=== PATIENT | male | born 1970 | race Caucasian/White ===

== ENCOUNTER 2016-06-04 13:31 | Emergency (ER) | payer MEDICAID ==
[2016-06-04] MEDS ORDERED: ONDANSETRON HCL/PF 2 MG/ML VIAL IV ONE (14:30)
[2016-06-04] MEDS ORDERED: NORMAL SALINE 1,000 ML IV ONE ×2 (14:32→16:05)
[2016-06-04] MEDS ORDERED: INSULIN REGULAR, HUMAN 100 UNITS/ML VIAL ONE (14:39)
[2016-06-04] MEDS ORDERED: INSULIN REGULAR, HUMAN 100 UNITS/ML VIAL IV ONE (14:39)
--- NOTE | 2016-06-04 14:39 | ERNOTE ---
Medical Problem HPI - Narrative Date of Service: 06/04/16 - General Chief Complaint: Nausea/Vomiting Time Seen by Provider: 06/04/16 14:30 Source: patient Exam Limitations: no limitations - Immun/Allergies/Home Medications Allergies/Adverse Reactions: Allergies bee venom (honey bee) Allergy (Verified 06/04/16 13:42) coconut oil Allergy (Verified 06/04/16 13:42) divalproex sodium [From Depakote] Allergy (Verified 06/04/16 13:42) shellfish derived Allergy (Verified 06/04/16 13:42) benztropine mesylate [From Cogentin] Adverse Reaction (Verified 06/04/16 13:42) Home Medications: HOME MEDICATIONS Insulin NPL/Insulin Lispro [Humalog Mix 75-25 Kwikpen] 30 unit SQ BID 06/04/16 [ Last Taken Unknown] Lisinopril [Zestril] 2.5 mg PO DAILY 06/04/16 [Last Taken Unknown] - History of Present History Narrative: Presents with c/o nausea and vomiting, onset this morning. Vomited once today. Pt states he has some abdominal cramping, bodyaches, chills, and dizziness. Denies any diarrhea or noticeable fever. Timing: getting worse Severity: moderate Review of Systems - Review of Systems Constitutional: Present: chills, fatigue EYE: Present: no symptoms reported ENT: Present: no symptoms reported Respiratory: Present: no symptoms reported Cardiology: Present: no symptoms reported Gastrointestinal/Abdominal: Present: nausea, vomiting, abdominal pain. Absent: diarrhea, eating less, drinking less Genitourinary: Present: no symptoms reported Musculoskeletal: Present: See HPI Skin: Present: no symptoms reported Neurological: Present: no symptoms reported Endocrine: Present: no symptoms reported Hematologic/Lymphatic: Present: no symptoms reported Psych: Present: no symptoms reported All Other Systems: All systems neg except as marked - Patient's Past Medical History Patient History - Medical: Diabetes Type 1 Patient History - Cardiac/Respiratory: Hypertension, Hyperlipidemia Patient History - Cancer: Prostate Patient History - Surgical Procedures: Hernia Repair Patient History - Other: None - Social History Living Situations: home Psych History: No pertinent hx Smoking Status: Current every day smoker Alcohol Use: none Drug Use: none Physical Exam - Physical Exam General Appearance: Present: wd/wn, alert, no apparent distress Eye Exam: Normal inspection: bilateral, PERRL: bilateral, EOMI: bilateral Ears, Nose, Throat: Present: normal ENT inspection, normal pharynx Neck: Present: normal inspection, nontender Respiratory: Present: no respiratory distress, normal breath sounds, no accessory muscle use, chest nontender, lungs clear Cardiovascular/Chest: Present: regular rate, rhythm, no murmur, normal peripheral pulses Gastrointestinal/Abdominal: Present: normal bowel sounds, nontender, nondistended, soft, no organomegaly Extremity Exam: Present: normal inspection Neurological Exam: Present: alert, oriented, normal mood/affect, no motor/ sensory deficits Skin Exam: Present: normal color, warm/dry ED Progress - Results and Orders Patient's Lab Results:: I have reviewed the patient's lab results. - Vital Signs Patient's Vital Signs:: I have reviewed the patient's vital signs. Vital Signs: Vital Signs 06/04/16 13:35 Temperature 36.6 C Pulse Rate 87 Respiratory 12 Rate Blood Pressure 150/98 O2 Sat by Pulse 99 Oximetry - EKG EKG: unchanged from - previous EKG, showing Septal VT of indeterminate age. Sinus Rhythm @75 bpm. - Progress/Reassessment Chief Complaint: Nausea/Vomiting Progress:: Improved Departure - Departure Clinical Impression: Hyperglycemia due to type 2 diabetes mellitus Qualifiers: Diabetes mellitus group home insulin use: with group home use Qualified Code(s): E11.65 - Type 2 diabetes mellitus with hyperglycemia; Z79.4 - jail (current ) use of insulin Disposition: Home self-care Condition: Good Instructions: Hyperglycemia, [id number], Type 2 Diabetes Mellitus, Adult, [id number]
[2016-06-04 14:48] LABS: Hemoglobin 11.9 gm/dL (13.5-18.0); Red Blood Count 4.15 M/mm3 (4.7-6.0); White Blood Count 7.9 K/mm3 (4.0-10.5)
[2016-06-04 14:49] LABS: Hematocrit 36.4 % (42.0-52.0); Mean Cell Volume 87.7 fl (78-100); Mean Corpuscular Hemoglobin 28.7 pg (27-31); Mean Corpuscular Hgb Conc 32.7 g/dl (32-36); Mean Platelet Volume 9.3 fl (6.0-9.5); Neutrophil # 4.9 K/mm3 (1.3-6.0); Neutrophil % 61.9 % (42-75.0); Platelet Count 434 K/mm3 (150-450); Red Cell Distribution Width 13.6 % (11.5-14.0)
[2016-06-04 14:50] LABS: Urine Bilirubin Negative (NEGATIVE); Urine Blood Negative /ul (NEGATIVE); Urine Ketone Negative (NEGATIVE); Urine Nitrite Negative (NEGATIVE); Urine Protein Negative (NEGATIVE); Urine Specific Gravity 1.015 SP.GR. (1.005-1.030); Urine Urobilinogen Normal (NORMAL); Urine pH 7.5 pH (5.0-7.0)
--- OUTSIDE RECORDS SUMMARY | 2016-06-04 14:50 | XMS REPORT | Continuity of Care Document ---
:1970 Author Organization [facility] ([facility]) [place] [address] Phone [phone] Care Team Providers Name Role Phone Bob Saez Primary Care Provider [phone] Source Comments This disclosure is being made pursuant to the Care Everywhere program, applicable federal and state laws, and may not contain all informaitonavailable regarding this patient.[facility] ([facility]) Active Allergies and Adverse Reactions Allergen Noted Date Severity Reactions Comments Bee Stings 05/03/2009 Angioedema Benztropine 05/03/2009 Rash Iodinated Contrast Media - Oral And Iv Dye 05/03/2009 Rash Current Medications Prescription Sig. Disp. Refills Start Date End Date Status lisinopril (PRINIVIL) take 1 Tab by mouth 30 Tab 11 05/06/2009 Active 5 mg tablet daily. Indications: Hypertension FLUoxetine (PROZAC) 20 take 1 Cap by mouth 30 Cap 1 05/07/2009 Active mg capsule daily for 60 days. Indications: Depression Active Problems Problem Noted Date Chest pain 05/06/2009 Social History Tobacco Use Types Packs/Day Years Used Date Current Every Day Smoker Comments:1ppd for 20 years Alcohol Use Drinks/Week oz/Week Comments Yes About 5 beers per month Last Filed Vital Signs Vital Sign Reading Time Taken Blood Pressure 96/63 05/06/2009 8:00 AM OFFICE SERVICES SPECIALIST Pulse 75 05/06/2009 8:00 AM OFFICE SERVICES SPECIALIST Temperature 36.3 C (97.3 F) 05/06/2009 8:00 AM OFFICE SERVICES SPECIALIST Respiratory Rate 20 05/06/2009 8:00 AM OFFICE SERVICES SPECIALIST Height 1.803 m (5' 11") 05/03/2009 1:27 PM OFFICE SERVICES SPECIALIST Weight 72 kg (158 lb 11.7 oz) 05/03/2009 6:00 PM OFFICE SERVICES SPECIALIST Body Mass Index 22.15 05/03/2009 6:00 PM OFFICE SERVICES SPECIALIST Oxygen Saturation 99% 05/06/2009 8:00 AM OFFICE SERVICES SPECIALIST Plan of Care Health Maintenance Due Date Last Done Comments Hepatitis B Vaccine (1 of 3 - Primary 1970 Series) Tdap Vaccine 1981 MMR Vaccine 1988 Td Vaccine 1988 Pneumococcal Vaccine (1 of 1 - PPSV23) 1989 Lipid Disorder Screening 05/04/2014 05/04/2009, 05/03/2009 Influenza Vaccine: Seasonal (#1) 10/21/2015 Results from Last 3 Months Not on file
[2016-06-04 14:59] LABS: Urine Appearance Clear; Urine Bacteria None Seen; Urine Color Yellow; Urine RBC None Seen /hpf (0-5); Urine WBC None Seen /hpf (0-5)
[2016-06-04] MEDS ORDERED: ONDANSETRON HCL/PF 2 MG/ML VIAL ONE (15:01)
[2016-06-04 15:07] LABS: Albumin * 3.2 gm/dl (3.4-5.0); Anion Gap 15.2 mmol/L (6.8-13.8); BUN/Creatinine Ratio 21.1 (9.0-21.6); Bilirubin, Total 0.2 mg/dL (0.0-1.1); Ca. Corrected For Albumin 8.6 mg/dL (8.4-10.2); Calcium * 8.3 mg/dL (7.9-10.9); Carbon Dioxide 23.2 mmol/L (24-32.6); Potassium 4.4 mmol/L (3.4-4.6)
[2016-06-04 17:36] VITALS: BP 149/88
== END 2016-06-04 17:37 | disposition home or self-care (01) ==
LOC: ER 13:31
PROC: 4A033R1 Measurement of Arterial Saturation, Peripheral, Percutaneous Approach (ICD-10-PCS; principal; 2016-06-04)
DX: E11.65 Type 2 diabetes mellitus with hyperglycemia (principal); Z79.4 Long term (current) use of insulin; Z85.46 Personal history of malignant neoplasm of prostate; F17.210 Nicotine dependence, cigarettes, uncomplicated; I10 Essential (primary) hypertension

== ENCOUNTER 2016-07-08 16:01 | Emergency (ER) | payer MEDICAID ==
[2016-07-08 16:28] LABS: Urine Bilirubin Negative (NEGATIVE); Urine Blood Negative /ul (NEGATIVE); Urine Ketone Negative (NEGATIVE); Urine Nitrite Negative (NEGATIVE); Urine Protein Negative (NEGATIVE); Urine Urobilinogen Normal (NORMAL); Urine pH 5.5 pH (5.0-7.0)
[2016-07-08] MEDS ORDERED: NORMAL SALINE 1,000 ML IV ONE (16:30)
[2016-07-08 16:37] LABS: Hematocrit 37.6 % (42.0-52.0); Hemoglobin 12.3 gm/dL (13.5-18.0); Mean Cell Volume 84.7 fl (78-100); Mean Corpuscular Hemoglobin 27.7 pg (27-31); Mean Corpuscular Hgb Conc 32.7 g/dl (32-36); Mean Platelet Volume 9.8 fl (6.0-9.5); Neutrophil # 4.6 K/mm3 (1.3-6.0); Neutrophil % 55.8 % (42-75.0); Platelet Count 375 K/mm3 (150-450); Red Blood Count 4.44 M/mm3 (4.7-6.0); Red Cell Distribution Width 13.4 % (11.5-14.0); White Blood Count 8.2 K/mm3 (4.0-10.5)
[2016-07-08 16:42] LABS: Urine Appearance Clear; Urine Bacteria None Seen; Urine Color Yellow; Urine RBC None Seen /hpf (0-5); Urine WBC None Seen /hpf (0-5)
[2016-07-08 16:55] LABS: ALT 30 U/L (19-67); AST 20 U/L (0-48); Albumin * 3.8 gm/dl (3.4-5.0); Alkaline Phosphatase * 107 U/L (50-170); Anion Gap 13.8 mmol/L (6.8-13.8); Bilirubin, Total 0.2 mg/dL (0.0-1.1); Blood Urea Nitrogen 20 mg/dL (6-23); Ca. Corrected For Albumin 9.1 mg/dL (8.4-10.2); Calcium * 9.3 mg/dL (7.9-10.9); Carbon Dioxide 26.2 mmol/L (24-32.6); Chloride 102 mmol/L (97-106); Glucose * 337 mg/dL (70-110); Sodium 138 mmol/L (132-142); Total Protein 7.4 gm/dL (6.2-8.2)
--- OUTSIDE RECORDS SUMMARY | 2016-07-08 17:00 | XMS REPORT | Continuity of Care Document ---
:1970 Author Organization [facility] ([facility]) [place] [address] Phone [phone] Care Team Providers Name Role Phone Bob Saez Primary Care Provider [phone] Source Comments This disclosure is being made pursuant to the Care Everywhere program, applicable federal and state laws, and may not contain all informaitonavailable regarding this patient.[facility] ([facility]) Active Allergies and Adverse Reactions Allergen Noted [...] Taken Blood Pressure 96/63 05/06/2009 8:00 AM FINANCE ANALYST Pulse 75 05/06/2009 8:00 AM FINANCE ANALYST Temperature 36.3 C (97.3 F) 05/06/2009 8:00 AM FINANCE ANALYST Respiratory Rate 20 05/06/2009 8:00 AM FINANCE ANALYST Height 1.803 m (5' 11") 05/03/2009 1:27 PM FINANCE ANALYST Weight 72 kg (158 lb 11.7 oz) 05/03/2009 6:00 PM FINANCE ANALYST Body Mass Index 22.15 05/03/2009 6:00 PM FINANCE ANALYST Oxygen Saturation 99% 05/06/2009 8:00 AM FINANCE ANALYST Plan of Care Health Maintenance Due Date Last Done Comments Hepatitis B Vaccine (1 of 3 - Primary 1970 Series) Tdap Vaccine 1981 MMR Vaccine 1988 Td Vaccine 1988 Pneumococcal Vaccine (1 of 1 - PPSV23) 1989 Lipid Disorder Screening 05/04/2014 05/04/2009, 05/03/2009 Influenza Vaccine: Seasonal (#1) 10/21/2015 Results from Last 3 Months Not on file
--- NOTE | 2016-07-08 17:46 | ERNOTE ---
Medical Problem HPI - Narrative Date of Service: 07/08/16 - General Chief Complaint: Diabetes Related Problem Time Seen by Provider: 07/08/16 16:19 Source: patient - Immun/Allergies/Home Medications Immunizations: IMMUNIZATION HX Immunizations Up to Date Yes History of Influenza Vaccine Yes Hx Pneumococcal Vaccination Yes Allergies/Adverse Reactions: Allergies coconut oil Allergy (Verified 07/08/16 16:17) divalproex sodium [From Depakote] Allergy (Verified 07/08/16 16:17) iodine Allergy (Verified 07/08/16 16:17) shellfish derived Allergy (Verified 07/08/16 16:17) venom-honey bee [bee venom (honey bee)] Allergy (Verified 07/08/16 16:17) benztropine mesylate [From Cogentin] Adverse Reaction (Verified 07/08/16 16:17) Home Medications: HOME MEDICATIONS Lisinopril [Zestril] 10 mg PO DAILY 06/04/16 [Last Taken Unknown] Gabapentin [Gralise] 600 mg PO HS 07/08/16 [Last Taken Unknown] Insulin Detemir [Levemir] 20 units SC HS 07/08/16 [Last Taken Unknown] Insulin Lispro [Humalog] 10 units SQ TID 07/08/16 [Last Taken Unknown] - History of Present History Narrative: 46-year-old male presenting to the emergency room for general complaints of not feeling well and having an elevated blood sugar at home. Patient was also complaining of polyuria polydipsia polyphagia Date (Duration): 07/08/16 Timing: constant Modifying Factors - (Worsens): Present: eating Review of Systems - Review of Systems Constitutional: Present: See HPI, malaise EYE: Present: no symptoms reported ENT: Present: no symptoms reported Respiratory: Present: no symptoms reported Cardiology: Present: no symptoms reported Gastrointestinal/Abdominal: Present: See HPI Genitourinary: Present: See HPI, frequency Musculoskeletal: Present: no symptoms reported Skin: Present: no symptoms reported Neurological: Present: no symptoms reported Endocrine: Present: See HPI, increased thirst, increased urine, other - elevated blood glucose Hematologic/Lymphatic: Present: no symptoms reported Psych: Present: no symptoms reported - Patient's Past Medical History Patient History - Medical: Diabetes Type 1 Patient History - Cardiac/Respiratory: Hypertension, Hyperlipidemia Patient History - Cancer: Prostate Patient History - Surgical Procedures: Hernia Repair Patient History - Other: None - Social History Living Situations: home Psych History: No pertinent hx Smoking Status: Current every day smoker Have you smoked in the past 12 months: Yes Alcohol Use: none Drug Use: none - Immunizations Immunizations Up to Date: Yes Hx Pneumococcal Vaccination: Yes History of Influenza Vaccine: Yes Physical Exam - Physical Exam Narrative: This alert 46 male presenting to the emergency room. States that he was having blood work drawn today and his blood glucose was over 600 patient states that he checked his needed at home and is in the 500s but still continued to feel poorly so he decided to come to the emergency room. States he just does not feel good. Patients exam is positive for dry mucous membranes. General Appearance: Present: wd/wn, alert, no apparent distress Eye Exam: Normal inspection: bilateral Ears, Nose, Throat: Present: normal ENT inspection Neck: Present: normal inspection, nontender Respiratory: Present: no respiratory distress, normal breath sounds, chest nontender, lungs clear Cardiovascular/Chest: Present: regular rate, rhythm, no murmur Gastrointestinal/Abdominal: Present: normal bowel sounds, nontender, soft Back Exam: Present: normal range of motion Extremity Exam: Present: normal inspection, non-tender, normal range of motion, no edema Neurological Exam: Present: alert, oriented, normal mood/affect, no motor/ sensory deficits Skin Exam: Present: normal color, warm/dry Lymphatic Exam: Present: no adenopathy ED Progress - Results and Orders Patient's Lab Results:: I have reviewed the patient's lab results. Results and Orders: no acute process observed. negative for DKA, blood glucose trending down. - Vital Signs Vital Signs: Vital Signs 07/08/16 07/08/16 07/08/16 16:12 16:52 17:30 Temperature 37.8 C H 37.1 C Pulse Rate 95 95 93 Respiratory 14 15 14 Rate Blood Pressure 139/95 136/101 141/98 O2 Sat by Pulse 97 96 98 Oximetry - Progress/Reassessment Chief Complaint: Diabetes Related Problem Progress:: Improved Departure - Departure Clinical Impression: Hyperglycemia due to type 1 diabetes mellitus, Dehydration Disposition: Home self-care Condition: Stable Instructions: Dehydration, Adult, [id number], Hyperglycemia, [id number] Additional Instructions: Continue previous home medications. follow up with your doctor in the next few days regarding elevated blood glucoses. Return to the emergency room if you any other signs and symptoms of elevated blood glucose that is uncontrolled with her home medications. Return to the emergency room if you have any new symptoms or symptoms continue for dehydration. Referrals: Horace Feng MD [Primary Care Provider] -
[2016-07-08 18:10] VITALS: BP 136/82
== END 2016-07-08 18:10 | disposition home or self-care (01) ==
LOC: ER 16:01
DX: E86.0 Dehydration (principal); E10.65 Type 1 diabetes mellitus with hyperglycemia; Z85.46 Personal history of malignant neoplasm of prostate; Z79.4 Long term (current) use of insulin; I10 Essential (primary) hypertension; F17.210 Nicotine dependence, cigarettes, uncomplicated

== ENCOUNTER 2016-08-26 06:00 | Emergency (ER) | payer MEDICAID, OTHER ==
--- OUTSIDE RECORDS SUMMARY | 2016-08-26 06:50 | XMS REPORT | Continuity of Care Document ---
:1970 Author Organization [facility] ([facility]) Address [place] [address] Phone [phone] Care Team Providers Name Role Phone Laura Fengjuan david Primary Care Provider [phone] Source Comments This disclosure is being made pursuant to the Care Everywhere program, applicable federal and state laws, and may not contain all informaitonavailable regarding this patient.[facility] ([facility]) Active Allergies and Adverse Reactions Allergen Noted Date Severity Reactions Comments Bee Stings 05/03/2009 Angioedema Benztropine 05/03/2009 Rash Iodinated Contrast- Oral And Iv Dye 05/03/2009 Rash Current [...] Problems Problem Noted Date Chest pain 05/06/2009 Most Recent Encounters Date Type Specialty Providers Description 08/21/2016 Office Visit Diabetes Services Default, Other Billg Chief Comp: Patient - Defo Reported Reason For Shanique Cabrera, RD LD Visit 08/21/2016 Office Visit Diabetes Services Default, Other Billg Chief Comp: Patient - Defo Reported Reason For Elsie Darby, Visit PA-C 08/06/2016 Office Visit Diabetes Services Default, Other Billg Chief Comp: Patient - Defo Reported Reason For DeborahShanique carvalho, RD LD Visit 08/06/2016 Office Visit Diabetes Services Default, Other Billg Chief Comp: Patient - Defo Reported Reason For Elsie Darby, Visit PA-C Social History Tobacco Use Types Packs/Day Years Used Date Current Every Day Smoker Comments:1ppd for 20 years Alcohol Use Drinks/Week oz/Week Comments Yes About 5 beers per month Last Filed Vital Signs Vital Sign Reading Time Taken Blood Pressure 96/63 05/06/2009 8:00 AM SLUMBER ROOM ATTENDANT Pulse 75 05/06/2009 8:00 AM SLUMBER ROOM ATTENDANT Temperature 36.3 C (97.3 F) 05/06/2009 8:00 AM SLUMBER ROOM ATTENDANT Respiratory Rate 20 05/06/2009 8:00 AM SLUMBER ROOM ATTENDANT Height 1.803 m (5' 11") 05/03/2009 1:27 PM SLUMBER ROOM ATTENDANT Weight 72 kg (158 lb 11.7 oz) 05/03/2009 6:00 PM SLUMBER ROOM ATTENDANT Body Mass Index 22.15 05/03/2009 6:00 PM SLUMBER ROOM ATTENDANT Oxygen Saturation 99% 05/06/2009 8:00 AM SLUMBER ROOM ATTENDANT Plan of Care Date Type Specialty Providers Description 09/03/2016 Appointment Diabetes Services Default, Other Billg - Defo [address] [place] [address] [phone] (Fax) Chief Comp: Patient Elsie Darby, PABetito [address] [place] [address] [phone] (Fax) Reported Reason For Visit 09/03/2016 Appointment Diabetes Services Default, Other Billg - Defo [address] [place] [address] [phone] (Fax) Chief Comp: Patient Marlin Olea, RD LD [address] [place] [address] [phone] (Fax) Reported Reason For Visit Health Maintenance Due Date Last Done Comments Hepatitis B Vaccine (1 of 3 - Primary 1970 Series) Tdap Vaccine 1981 MMR Vaccine 1988 Td Vaccine 1988 Pneumococcal Vaccine (1 of 1 - PPSV23) 1989 Lipid Disorder Screening 05/04/2014 05/04/2009, 05/03/2009 Influenza Vaccine: Seasonal (Season Ended) 2016 Results from Last 3 Months Not on file
--- NOTE | 2016-08-26 06:58 | ERNOTE ---
Integumentary HPI - General Presenting Symptoms: rash Time Seen by Provider: 08/26/16 06:41 Source: patient Exam Limitations: no limitations - Immun/Allergies/Home Medications Immunizations: IMMUNIZATION HX Immunizations Up to Date Yes History of Influenza Vaccine Yes Hx Pneumococcal Vaccination Yes Allergies/Adverse Reactions: Allergies Allergy/AdvReac Type Severity Reaction Status Date / Time coconut oil Allergy Verified 08/26/16 06:16 divalproex sodium Allergy Verified 08/26/16 06:16 [From Depakote] iodine Allergy Verified 08/26/16 06:16 shellfish derived Allergy Verified 08/26/16 06:16 venom-honey bee Allergy Verified 08/26/16 06:16 [bee venom (honey bee)] benztropine mesylate AdvReac Verified 08/26/16 06:16 [From Cogentin] Home Medications: HOME MEDICATIONS Lisinopril [Zestril] 10 mg PO DAILY 06/04/16 [Last Taken Unknown] Gabapentin [Gralise] 600 mg PO HS 07/08/16 [Last Taken Unknown] Insulin Detemir [Levemir] 20 units SC HS 07/08/16 [Last Taken Unknown] Insulin Lispro [Humalog] 10 units SQ TID 07/08/16 [Last Taken Unknown] Aspirin 81 mg PO DAILY 08/26/16 [Last Taken Unknown] Triamcinolone Acetonide [Kenalog 0.025%] 1 appl TP BID #15 gm 08/26/16 [Last Taken Unknown] - Pain Pain Score: 7 - History of Present Illness Narrative: Pt states he has had a rash for 3 days and has gotten more painful. Last night he couldn't sleep due to pain. Location: Reports: other - lower abdomen and pelvic area Quality: Reports: painful Severity: moderate Exposure: Reports: no cause identified Modifying Factors - (Worsens): Reports: other - pressure on area Associated Symptoms: Denies: blisters, hives, change in skin texture Review of Systems - Review of Systems Constitutional: Absent: recent illness, fever EYE: Present: no symptoms reported ENT: Present: no symptoms reported Respiratory: Present: no symptoms reported Cardiology: Present: no symptoms reported Gastrointestinal/Abdominal: Present: no symptoms reported Genitourinary: Present: no symptoms reported Musculoskeletal: Present: no symptoms reported Skin: Present: See HPI Neurological: Present: no symptoms reported Endocrine: Present: no symptoms reported Hematologic/Lymphatic: Present: no symptoms reported Psych: Present: no symptoms reported - Patient's Past Medical History Patient History - Medical: Diabetes Type 1, Diabetes Type 2 Insulin Dependent Patient History - Cardiac/Respiratory: Hypertension, Hyperlipidemia Patient History - Cancer: Prostate Patient History - Surgical Procedures: Hernia Repair Patient History - Other: None - Social History Living Situations: home Psych History: No pertinent hx Alcohol Use: none Drug Use: none - Immunizations Immunizations Up to Date: Yes Hx Pneumococcal Vaccination: Yes History of Influenza Vaccine: Yes Physical Exam - Physical Exam General Appearance: Present: wd/wn, alert, no apparent distress Ears, Nose, Throat: Present: normal ENT inspection Neck: Present: normal inspection, supple, full range of motion Respiratory: Present: no respiratory distress, no accessory muscle use Neurological Exam: Present: alert, oriented, normal mood/affect Skin Exam: Present: skin rash - scattered very faint areas of pink, non- palpable rash on pelvis and lower abdomen Lymphatic Exam: Present: no adenopathy ED Progress - Vital Signs Vital Signs: Vital Signs 08/26/16 08/26/16 06:07 06:32 Temperature 37.3 C Pulse Rate 95 94 Respiratory 12 12 Rate Blood Pressure 149/104 160/98 O2 Sat by Pulse 97 96 Oximetry - Progress/Reassessment Chief Complaint: Rash Departure Clinical Impression: Rash and other nonspecific skin eruption - Departure Disposition: Home Follow Up Needed Condition: Good Instructions: Rash, [id number] Additional Instructions: use cream as directed. See your regular doctor if not improving in 5-7 days Referrals: Horace Feng MD [Primary Care Provider] - Prescriptions: Triamcinolone Acetonide [Kenalog 0.025%] 1 appl TP BID #15 gm
[2016-08-26 07:01] VITALS: BP 155/101
== END 2016-08-26 07:04 | disposition home or self-care (01) ==
LOC: ER 06:00
DX: R21 Rash and other nonspecific skin eruption (principal); Z85.46 Personal history of malignant neoplasm of prostate; I10 Essential (primary) hypertension; E78.5 Hyperlipidemia, unspecified; E11.9 Type 2 diabetes mellitus without complications

== ENCOUNTER 2016-12-16 00:54 | Emergency (ER) | payer OTHER ==
[2016-12-16] MEDS ORDERED: ONDANSETRON HCL/PF 2 MG/ML VIAL IV ONE (00:55)
[2016-12-16] MEDS ORDERED: NORMAL SALINE 1,000 ML IV ONE ×2 (01:13→03:03)
[2016-12-16] MEDS ORDERED: ONDANSETRON HCL/PF 2 MG/ML VIAL ONE (01:15)
[2016-12-16 01:21] LABS: Urine Bilirubin Negative (NEGATIVE); Urine Blood Negative /ul (NEGATIVE); Urine Ketone Large mg/dL (NEGATIVE); Urine Nitrite Negative (NEGATIVE); Urine Protein Negative (NEGATIVE); Urine Urobilinogen Normal (NORMAL)
--- NOTE | 2016-12-16 01:26 | ERNOTE ---
Medical Problem HPI - General Chief Complaint: Nausea/Vomiting Time Seen by Provider: 12/16/16 00:54 Source: patient Exam Limitations: clinical condition - Immun/Allergies/Home Medications Immunizations: IMMUNIZATION HX Immunizations Up to Date Yes History of Influenza Vaccine No Hx Pneumococcal Vaccination Yes Allergies/Adverse Reactions: Allergies coconut oil Allergy (Verified 08/26/16 06:16) divalproex sodium [From Depakote] Allergy (Verified 08/26/16 06:16) iodine Allergy (Verified 08/26/16 06:16) shellfish derived Allergy (Verified 08/26/16 06:16) venom-honey bee [bee venom (honey bee)] Allergy (Verified 08/26/16 06:16) benztropine mesylate [From Cogentin] Adverse Reaction (Verified 08/26/16 06:16) Home Medications: HOME MEDICATIONS Gabapentin [Gralise] 600 mg PO HS 07/08/16 [Last Taken Unknown] Insulin Detemir [Levemir] 20 units SC HS 07/08/16 [Last Taken Unknown] Insulin Lispro [Humalog] 10 units SQ TID 07/08/16 [Last Taken Unknown] Gabapentin 300 mg PO HS 12/16/16 [Last Taken Unknown] Lisinopril 20 mg PO DAILY 12/16/16 [Last Taken Unknown] Pantoprazole Sodium 40 mg PO DAILY 12/16/16 [Last Taken Unknown] Promethazine HCl 12.5 mg PO QID PRN 12/16/16 [Last Taken Unknown] - History of Present History Narrative: Pt states he has been vomiting since 13:00 yesterday. He states he has phenergan at home but it hasn't been working today. Timing: getting worse Severity: severe Modifying Factors - (Improves): Absent: medication - phenergan did not help Modifying Factors - (Worsens): Present: eating Review of Systems - Review of Systems Constitutional: Absent: recent illness EYE: Absent: vision changes ENT: Absent: nose congestion Respiratory: Absent: shortness of breath Cardiology: Absent: chest pain Gastrointestinal/Abdominal: Present: nausea, vomiting. Absent: diarrhea, constipation Genitourinary: Present: frequency Musculoskeletal: Absent: neck pain, joint pain Skin: Absent: rash Neurological: Present: no symptoms reported Endocrine: Present: flushing, increased thirst Hematologic/Lymphatic: Present: no symptoms reported Psych: Present: no symptoms reported - Patient's Past Medical History Patient History - Medical: Diabetes Type 1, Other Patient History - Cardiac/Respiratory: Hypertension, Hyperlipidemia Patient History - Cancer: No Hx of Cancer Patient History - Surgical Procedures: Hernia Repair Patient History - Other: None - Social History Living Situations: other Psych History: No pertinent hx Smoking Status: Current every day smoker Have you smoked in the past 12 months: Yes Do you dip or chew tobacco: No Alcohol Use: rarely Drug Use: marijuana - Immunizations Immunizations Up to Date: Yes Hx Pneumococcal Vaccination: Yes History of Influenza Vaccine: No Physical Exam - Physical Exam General Appearance: Present: wd/wn, alert, moderate distress Head Exam: Present: normal inspection, no evidence of injury Eye Exam: Normal inspection: bilateral Ears, Nose, Throat: Present: dry mucous membranes Neck: Present: nontender, supple, full range of motion Respiratory: Present: no respiratory distress, normal breath sounds, lungs clear Cardiovascular/Chest: Present: regular rate, rhythm, no murmur Gastrointestinal/Abdominal: Present: nondistended, soft, tenderness - mild epigastric, abnormal bowel sounds - hyperactive, guarding, rebound Extremity Exam: Present: normal inspection, no edema Neurological Exam: Present: alert, oriented, no motor/sensory deficits Skin Exam: Present: normal color, warm/dry Lymphatic Exam: Present: no adenopathy ED Progress - Results and Orders Patient's Lab Results:: I have reviewed the patient's lab results. Results and Orders: Laboratory Tests 12/16/16 12/16/16 12/16/16 01:05 01:05 01:21 WBC Hgb Hct Plt Count Neutrophils % (Manual) VBG pH Sodium Potassium Chloride Carbon Dioxide Anion Gap BUN Creatinine Random Glucose Calcium Total Bilirubin AST ALT Alkaline Phosphatase Total Protein Albumin Amylase Lipase Urine Color Pale yellow Urine Appearance Clear Urine pH 6.0 Ur Specific [place] 1.020 Urine Protein Negative Urine Glucose (UA) >=1000 H Urine Ketones Large Urine Blood Negative Urine Nitrate Negative Urine Bilirubin Negative Urine Urobilinogen Normal Ur Leukocyte Esterase Negative Urine RBC Trace Urine WBC None seen Ur Epithelial Cells None seen Urine Bacteria None seen Urine Culture Comments No culture indicated Gastric Occult Blood Positive H Urine Opiates Screen Negative Barbiturate Screen Negative Ur Phencyclidine Scrn Negative Urine Amphetamine Negative U Benzodiazepines Scrn Negative Urine Cocaine Screen Negative Urine Marijuana (THC) Positive H Serum Ketones 0912/16/16 12/16/16 02:00 02:00 02:00 WBC 25.4 H Hgb 16.1 Hct 51.4 Plt Count 281 Neutrophils % (Manual) 82 H VBG pH Sodium 139 Potassium 5.2 H D Chloride 98 Carbon Dioxide 13.9 L Anion Gap 32.3 H BUN 24 H D Creatinine 1.25 Random Glucose 506 H* Calcium 9.7 Total Bilirubin 0.6 AST 40 ALT 38 Alkaline Phosphatase 132 Total Protein 7.5 Albumin 4.4 Amylase 33 Lipase 47 L Urine Color Urine Appearance Urine pH Ur Specific [place] Urine Protein Urine Glucose (UA) Urine Ketones Urine Blood Urine Nitrate Urine Bilirubin Urine Urobilinogen Ur Leukocyte Esterase Urine RBC Urine WBC Ur Epithelial Cells Urine Bacteria Urine Culture Comments Gastric Occult Blood Urine Opiates Screen Barbiturate Screen Ur Phencyclidine Scrn Urine Amphetamine U Benzodiazepines Scrn Urine Cocaine Screen Urine Marijuana (THC) Serum Ketones Positive - 80mg/dl H 12/16/16 02:00 WBC Hgb Hct Plt Count Neutrophils % (Manual) VBG pH 7.243 L Sodium Potassium Chloride Carbon Dioxide Anion Gap BUN Creatinine Random Glucose Calcium Total Bilirubin AST ALT Alkaline Phosphatase Total Protein Albumin Amylase Lipase Urine Color Urine Appearance Urine pH Ur Specific [place] Urine Protein Urine Glucose (UA) Urine Ketones Urine Blood Urine Nitrate Urine Bilirubin Urine Urobilinogen Ur Leukocyte Esterase Urine RBC Urine WBC Ur Epithelial Cells Urine Bacteria Urine Culture Comments Gastric Occult Blood Urine Opiates Screen Barbiturate Screen Ur Phencyclidine Scrn Urine Amphetamine U Benzodiazepines Scrn Urine Cocaine Screen Urine Marijuana (THC) Serum Ketones - Vital Signs Patient's Vital Signs:: I have reviewed the patient's vital signs. Vital Signs: Vital Signs 12/16/16 00:54 Temperature 36.9 C Pulse Rate 112 H Respiratory 16 Rate Blood Pressure 141/109 O2 Sat by Pulse 97 Oximetry - X-Ray X-Ray #1 X-Ray: chest Interpretation: Interp. by me X-ray Comments: No infiltrate or effusion. no free air, mediastinum normal X-Ray #2 X-Ray: abdomen Interpretation: Interp. by me X-ray Comments: non specific gas pattern. no evidence of obstruction - Progress/Reassessment Chief Complaint: Nausea/Vomiting Progress:: Improved Progress Note-Subjective: 12/16/16 04:10 Spoke to Nurse refuse collector supervisor here and we do not have SCU nurse coverage to keep this patient. I called [facility] and due to hematemasis and risk for esophageal varices they would not be comfortable taking him. I spoke with Dr. Shaw at [facility] ED he agrees to accept the patient in transfer. Departure Clinical Impression: DKA (diabetic ketoacidoses) Qualifiers: Diabetes mellitus type: type 1 Diabetes mellitus complication detail: without coma Qualified Code(s): E10.10 - Type 1 diabetes mellitus with ketoacidosis without coma Gastrointestinal bleed Qualifiers: GI bleed type/associated pathology: gastrointestinal hemorrhage with hematemesis Qualified Code(s): K92.0 - Hematemesis - Departure Disposition: [facility] Condition: Fair
[2016-12-16] MEDS ORDERED: PROCHLORPERAZINE EDISYLATE 5 MG/ML VIAL IV ONE (01:33)
[2016-12-16] MEDS ORDERED: PANTOPRAZOLE SODIUM 40 MG in NORMAL SALINE 100 ML IV ONE (01:34)
[2016-12-16] MEDS ORDERED: PROCHLORPERAZINE EDISYLATE 5 MG/ML VIAL ONE (01:34)
[2016-12-16] MEDS ORDERED: PANTOPRAZOLE SODIUM 40 MG/100 ML PIGGYBACK IV ONE (01:35)
[2016-12-16 02:06] LABS: Hematocrit 51.4 % (42.0-52.0); Hemoglobin 16.1 gm/dL (13.5-18.0); Mean Cell Volume 92.8 fl (78-100); Mean Corpuscular Hemoglobin 29.1 pg (27-31); Mean Corpuscular Hgb Conc 31.3 g/dl (32-36); Mean Platelet Volume 11.1 fl (6.0-9.5); Platelet Count 281 K/mm3 (150-450); Red Blood Count 5.54 M/mm3 (4.7-6.0); White Blood Count 25.4 K/mm3 (4.0-10.5)
[2016-12-16 02:09] LABS: Total Cells Counted 100
[2016-12-16 02:11] LABS: Cocaine Ur Negative (NEGATIVE); Urine Barbiturate Negative (NEGATIVE); Urine Benzodiazepines Negative (NEGATIVE); Urine Opiates Negative (NEGATIVE); Urine PCP Negative (NEGATIVE)
[2016-12-16 02:18] LABS: Urine Appearance Clear; Urine Bacteria None Seen; Urine Color Pale Yellow; Urine RBC TRACE /hpf (0-5); Urine WBC None Seen /hpf (0-5)
[2016-12-16 02:25] LABS: Urine THC Positive (NEGATIVE)
[2016-12-16 02:26] LABS: Albumin * 4.4 gm/dl (3.4-5.0); Anion Gap 32.3 mmol/L (6.8-13.8); BUN/Creatinine Ratio 19.2 (9.0-21.6); Bilirubin, Total 0.6 mg/dL (0.0-1.1); Ca. Corrected For Albumin 9.1 mg/dL (8.4-10.2); Calcium * 9.7 mg/dL (7.9-10.9); Carbon Dioxide 13.9 mmol/L (24-32.6); Potassium 5.2 mmol/L (3.4-4.6); Total Protein 7.5 gm/dL (6.2-8.2)
[2016-12-16] MEDS ORDERED: INSULIN REGULAR, HUMAN 100 UNITS/ML VIAL IV ONE (03:03)
[2016-12-16] MEDS ORDERED: INSULIN REGULAR, HUMAN 100 UNITS/ML VIAL ONE (03:06)
[2016-12-16 03:24] LABS: Band 9 % (0-2.0); Basophil 1 % (0-1); Immature Granulocyte 2 (0-1); Lymphocyte 5 % (20-51)
[2016-12-16 03:25] LABS: Dohle Bodies Trace; Giant Platelets Trace; Monocyte 1 % (0-9); Neutrophil 82 % (42-75); Neutrophil # 20.8 K/mm3 (1.3-6.0); Toxic Granulation Trace
[2016-12-16] MEDS ORDERED: PROMETHAZINE HCL 25 MG/ML AMPUL IM ONE (03:26)
[2016-12-16 03:29] LABS: Poikilocytosis Trace
[2016-12-16] MEDS ORDERED: PROMETHAZINE HCL 25 MG/ML AMPUL ONE (03:30)
[2016-12-16] MEDS: INSULIN REGULAR HUMAN REC 100 UNITS in NORMAL SALINE 100 ML IV PRN ×2 (03:40→04:15)
[2016-12-16 04:11] VITALS: BP 153/86
== END 2016-12-16 04:25 | disposition short-term general hospital (02) ==
LOC: ER 00:54
DX: E10.10 Type 1 diabetes mellitus with ketoacidosis without coma (principal); K92.0 Hematemesis; I10 Essential (primary) hypertension; E78.5 Hyperlipidemia, unspecified; F17.200 Nicotine dependence, unspecified, uncomplicated
CPT/HCPCS: 36415; 71010; 74020; 80053; 80307; 81001; 82009; 82150; 82272; 82800; 83690; 85025; 96365; 96367; 96372; 96375; 99285; J2405

== ENCOUNTER 2016-12-30 14:52 | Emergency (ER) | payer OTHER ==
[2016-12-30] MEDS ORDERED: ASPIRIN 81 MG TAB.CHEW ONE (15:09)
[2016-12-30] MEDS: NITROGLYCERIN 0.4 MG/TAB BTL SL PRN ×2 (15:10→15:20)
[2016-12-30] MEDS ORDERED: ASPIRIN 81 MG TAB.CHEW PO ONE (15:14)
[2016-12-30] MEDS ORDERED: ONDANSETRON HCL/PF 2 MG/ML VIAL ONE ×2 (15:15→15:46)
[2016-12-30] MEDS ORDERED: ONDANSETRON HCL/PF 2 MG/ML VIAL IV ONE ×2 (15:15)
[2016-12-30 15:34] LABS: Hemoglobin 14.5 gm/dL (13.5-18.0); Mean Cell Volume 86.2 fl (78-100); Mean Corpuscular Hemoglobin 29.8 pg (27-31); Mean Corpuscular Hgb Conc 34.5 g/dl (32-36); Neutrophil # 5.3 K/mm3 (1.3-6.0); Neutrophil % 55.3 % (42-75.0); Platelet Count 415 K/mm3 (150-450); Red Blood Count 4.87 M/mm3 (4.7-6.0); Red Cell Distribution Width 13.1 % (11.5-14.0); White Blood Count 9.6 K/mm3 (4.0-10.5)
[2016-12-30 15:44] LABS: Prothrombin Time (Patient) 9.4 Seconds (9.4-11.4)
[2016-12-30 15:45] LABS: INR 0.9 INR (0.90-1.10); Partial Thrombolplastin Time 24.6 Seconds (24-32)
[2016-12-30 15:52] LABS: ALT 23 U/L (19-67); AST 17 U/L (0-48); Albumin * 3.5 gm/dl (3.4-5.0); Alkaline Phosphatase * 105 U/L (50-170); Anion Gap 14.5 mmol/L (6.8-13.8); BUN/Creatinine Ratio 12.8 (9.0-21.6); Bilirubin, Total 0.2 mg/dL (0.0-1.1); Blood Urea Nitrogen 10 mg/dL (6-23); Ca. Corrected For Albumin 9.4 mg/dL (8.4-10.2); Calcium * 9.3 mg/dL (7.9-10.9); Carbon Dioxide 25.7 mmol/L (24-32.6); Chloride 105 mmol/L (97-106); Glucose * 78 mg/dL (70-110); Magnesium 1.9 mg/dL (1.2-2.8); Potassium 3.2 mmol/L (3.4-4.6); Sodium 142 mmol/L (132-142)
[2016-12-30 15:53] LABS: Troponin I Less than 0.017 ng/ml (0.00-0.10)
[2016-12-30] MEDS ORDERED: PROMETHAZINE HCL 12.5 MG in DEXTROSE 5 % IN WATER 50 ML IV ONE ×2 (16:19)
[2016-12-30] MEDS ORDERED: LIDOCAINE HCL 20 ML UDC PO ONE (16:20)
[2016-12-30] MEDS ORDERED: MAG HYDROX/ALUMINUM HYD/SIMETH 30 ML UDC PO ONE (16:20)
[2016-12-30] MEDS ORDERED: BELLADONNA ALKALOIDS/PHENOBARB 60 ML BTL PO ONE (16:20)
[2016-12-30] MEDS ORDERED: diphenhydrAMINE HCL 50 MG/ML VIAL IV ONE (16:29)
[2016-12-30] MEDS ORDERED: METOCLOPRAMIDE HCL 5 MG/ML VIAL IV ONE (16:29)
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
[2016-12-30] MEDS ORDERED: METOCLOPRAMIDE HCL 5 MG/ML VIAL ONE (16:31)
[2016-12-30] MEDS ORDERED: diphenhydrAMINE HCL 50 MG/ML VIAL ONE (16:37)
[2016-12-30] MEDS ORDERED: DEXTROSE 50%-WATER 50 ML SYRG IV ONE (16:55)
[2016-12-30] MEDS ORDERED: DEXTROSE 50%-WATER 50 ML SYRG ONE (16:56)
[2016-12-30 17:57] VITALS: BP 117/76
== END 2016-12-30 18:05 | disposition home or self-care (01) ==
LOC: ER 14:52
DX: E10.43 Type 1 diabetes mellitus with diabetic autonomic (poly)neuropathy (principal); K31.84 Gastroparesis; Z79.4 Long term (current) use of insulin; I10 Essential (primary) hypertension; F17.200 Nicotine dependence, unspecified, uncomplicated
CPT/HCPCS: 36415; 71010; 80053; 82947; 83735; 84484; 85025; 85610; 85730; 93005; 96374; 96375; 99284; J2405

== ENCOUNTER 2018-03-30 21:35 | Observation (INO) ==
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
[2018-03-30] MEDS ORDERED: ONDANSETRON HCL/PF 2 MG/ML VIAL IV ONE (22:15)
[2018-03-30] MEDS ORDERED: NORMAL SALINE 1,000 ML IV ONE (22:15)
[2018-03-30] MEDS ORDERED: PANTOPRAZOLE SODIUM 40 MG/100 ML PIGGYBACK IV ONE (22:39)
[2018-03-30 23:06] LABS: Hematocrit 48.6 % (42.0-52.0); Hemoglobin 15.4 gm/dL (13.5-18.0); Mean Cell Volume 91.7 fl (78-100); Mean Corpuscular Hemoglobin 29.1 pg (27-31); Mean Corpuscular Hgb Conc 31.7 g/dl (32-36); Mean Platelet Volume 9.8 fl (8-11.3); Neutrophil # 12.2 K/mm3 (1.3-6.0); Neutrophil % 87.6 % (42-75.0); Platelet Count 245 K/mm3 (150-450); Red Cell Distribution Width 12.5 % (11.5-14.0); White Blood Count 13.9 K/mm3 (4.0-10.5)
[2018-03-30] MEDS ORDERED: PROCHLORPERAZINE EDISYLATE 5 MG/ML VIAL IV ONE (23:24)
[2018-03-30] MEDS ORDERED: PROCHLORPERAZINE EDISYLATE 5 MG/ML VIAL ONE (23:25)
[2018-03-30 23:29] LABS: Urine Bilirubin Negative (NEGATIVE); Urine Blood Negative /ul (NEGATIVE); Urine Ketone Large mg/dL (NEGATIVE); Urine Nitrite Negative (NEGATIVE); Urine Protein Negative (NEGATIVE); Urine Urobilinogen Normal (NORMAL)
[2018-03-30 23:36] LABS: ALT 24 U/L (19-67); AST 24 U/L (0-48); Albumin * 3.5 gm/dl (3.4-5.0); Alkaline Phosphatase * 172 U/L (50-170); Anion Gap 18.2 mmol/L (6.8-13.8); BUN/Creatinine Ratio 23.3 (9.0-21.6); Bilirubin, Total 0.4 mg/dL (0.0-1.1); Blood Urea Nitrogen 17 mg/dL (6-23); Ca. Corrected For Albumin 9.5 mg/dL (8.4-10.2); Calcium * 9.4 mg/dL (7.9-10.9); Carbon Dioxide 27.3 mmol/L (24-32.6); Chloride 99 mmol/L (97-106); Glucose * 405 mg/dL (70-110); Potassium 4.5 mmol/L (3.4-4.6); Sodium 140 mmol/L (132-142); Total Protein 6.9 gm/dL (6.2-8.2)
[2018-03-30 23:42] LABS: Cocaine Ur Negative (NEGATIVE); Urine Barbiturate Negative (NEGATIVE); Urine Benzodiazepines Negative (NEGATIVE); Urine Opiates Negative (NEGATIVE); Urine PCP Negative (NEGATIVE); Urine THC Negative (NEGATIVE)
[2018-03-30 23:43] LABS: Urine Appearance Clear (CLEAR); Urine Bacteria None Seen; Urine Color Yellow; Urine RBC None Seen /hpf (0-5); Urine WBC None Seen /hpf (0-5)
[2018-03-31] MEDS ORDERED: NORMAL SALINE 1,000 ML IV ONE ×4 (00:07→10:52)
[2018-03-31] MEDS ORDERED: INSULIN REGULAR, HUMAN 100 UNITS/ML VIAL IV ONE ×2 (00:44→10:56)
[2018-03-31] MEDS ORDERED: INSULIN REGULAR, HUMAN 100 UNITS/ML VIAL ONE ×2 (00:45→03:28)
[2018-03-31] MEDS ORDERED: INSULIN REGULAR, HUMAN 100 UNITS/ML VIAL SC ONE (00:48)
[2018-03-31] MEDS ORDERED: PIPERONYL BUTOX/PYRETHR/PERMET 1 EACH KIT TP ONE (01:27)
[2018-03-31] MEDS: PANTOPRAZOLE SODIUM 40 MG in NORMAL SALINE 100 ML IV SCH ×5 (03:21→22:12)
[2018-03-31] MEDS ORDERED: PROMETHAZINE HCL 25 MG TABLET PO PRN (08:26)
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
[2018-03-31 08:59] LABS: Hematocrit 39.8 % (42.0-52.0); Hemoglobin 12.9 gm/dL (13.5-18.0); Mean Cell Volume 89.8 fl (78-100); Mean Corpuscular Hemoglobin 29.1 pg (27-31); Mean Corpuscular Hgb Conc 32.4 g/dl (32-36); Mean Platelet Volume 9.6 fl (8-11.3); Neutrophil # 9.8 K/mm3 (1.3-6.0); Platelet Count 317 K/mm3 (150-450); Red Blood Count 4.43 M/mm3 (4.7-6.0); Red Cell Distribution Width 12.6 % (11.5-14.0); White Blood Count 13.1 K/mm3 (4.0-10.5)
[2018-03-31 09:11] LABS: ALT 17 U/L (19-67); AST 19 U/L (0-48); Albumin * 2.9 gm/dl (3.4-5.0); Alkaline Phosphatase * 152 U/L (50-170); Anion Gap 17.7 mmol/L (6.8-13.8); Bilirubin, Total 0.5 mg/dL (0.0-1.1); Blood Urea Nitrogen 17 mg/dL (6-23); Ca. Corrected For Albumin 8.9 mg/dL (8.4-10.2); Calcium * 8.3 mg/dL (7.9-10.9); Carbon Dioxide 21.1 mmol/L (24-32.6); Chloride 100 mmol/L (97-106); Estimated Creat Clear 123.7; Glucose * 420 mg/dL (70-110); Hemoglobin A1C 11.1 % (4.00-6.0); Potassium 4.8 mmol/L (3.4-4.6); Sodium 134 mmol/L (132-142); Total Protein 6.2 gm/dL (6.2-8.2)
[2018-03-31 09:12] LABS: Troponin I Less than 0.017 ng/mL (0.00-0.10)
[2018-03-31] MEDS: PANTOPRAZOLE SODIUM 40 MG TABLET.EC PO SCH (09:27)
[2018-03-31] MEDS: LISINOPRIL 20 MG TABLET PO SCH (09:27)
[2018-03-31] MEDS ORDERED: INSULIN LISPRO 100 UNITS/ML VIAL SC ONE (10:24)
[2018-03-31] MEDS ORDERED: NORMAL SALINE 2,000 ML IV ONE (10:58)
[2018-03-31] MEDS ORDERED: INSULIN LISPRO 100 UNITS/ML VIAL SC SCH (11:00)
[2018-03-31] MEDS: INSULIN LISPRO 100 UNITS/ML VIAL SC SCH ×2 (12:17→17:04)
[2018-03-31] MEDS ORDERED: ACETAMINOPHEN 325 MG TABLET PO PRN (16:56)
--- NOTE | 2018-03-31 16:56 | PN ---
[facility] Note - Interim Date: 03/31/18 Time: 16:53 Narrative: 03/31/18 16:53 Will keep him overnight. His BS is a little bit better. his hb is down but could still be dilutions. No further hematemesis. awaiting stooll for occult blood. awaiting H/H ordered for 4 p.m.
[2018-03-31] MEDS ORDERED: traMADol HCL 50 MG TABLET PO PRN (16:57)
[2018-03-31 17:30] LABS: Hemoglobin 13.1 gm/dL (13.5-18.0)
[2018-03-31] MEDS ORDERED: INSULIN DETEMIR 100 UNITS/ML VIAL SC SCH ×2 (21:00)
[2018-03-31] MEDS ORDERED: GABAPENTIN 600 MG TABLET PO SCH (21:00)
[2018-04-01] MEDS: PANTOPRAZOLE SODIUM 40 MG TABLET.EC PO SCH (07:33)
[2018-04-01] MEDS: INSULIN LISPRO 100 UNITS/ML VIAL SC SCH (07:33)
[2018-04-01 07:42] LABS: Anion Gap 8.5 mmol/L (6.8-13.8); BUN/Creatinine Ratio 21.7 (9.0-21.6); Calcium * 8.2 mg/dL (7.9-10.9); Carbon Dioxide 28.4 mmol/L (24-32.6); Estimated Creat Clear 145.3; Potassium 3.9 mmol/L (3.4-4.6)
[2018-04-01 07:46] LABS: Hematocrit 38.2 % (42.0-52.0); Hemoglobin 12.6 gm/dL (13.5-18.0); Mean Corpuscular Hemoglobin 29.4 pg (27-31); Mean Platelet Volume 9.2 fl (8-11.3); Neutrophil # 7.4 K/mm3 (1.3-6.0); Neutrophil % 64.1 % (42-75.0); Platelet Count 318 K/mm3 (150-450); Red Blood Count 4.29 M/mm3 (4.7-6.0); Red Cell Distribution Width 12.6 % (11.5-14.0); White Blood Count 11.5 K/mm3 (4.0-10.5)
--- NOTE | 2018-04-01 07:58 | DS ---
(1) Hyperglycemia due to type 1 diabetes mellitus Problem: Resolved (2) Gastrointestinal bleed Problem: Suspected Qualifiers: GI bleed type/associated pathology: gastrointestinal hemorrhage with hematemesis Qualified Code(s): K92.0 - Hematemesis (3) Leukocytosis Problem: Acute (4) Methamphetamine use Problem: Resolved (5) Chronic GERD Problem: Chronic (6) Peripheral neuropathy Problem: Chronic Qualifiers: Peripheral neuropathy type: polyneuropathy associated with underlying disease Qualified Code(s): G63 - Polyneuropathy in diseases classified elsewhere (7) Paraparesis of both lower limbs Problem: Chronic Description of Stay: Melvin Burgess, is a 47 year old white male with PMHx of Diabetes mellitus type 1, diabetic polyneuropathy, lower extremity parparesis , Hypertension, who was admitted on 03/31/2018 because of nausea, vomiting and somnolence. 6 days prior to admission the patient started developing upper respiratory tract infection like signs and symptoms with nasal discharge and coughing. 2 days prior to admission he started having decreased appetite and he would have nausea and vomiting with oral intake. Yesterday, the patient's roommate noticed that he had some blood in his vomitus and he was more somnolent and so EMS was called and he was brought to the emergency room. In the emergency room he was found to be positive for serum ketones, normal pH, elevated random blood sugar 400+ RBS, leukocytosis, normal electrolytes, normal hemoglobin. They did occult blood testing of his gastric content and it was positive. His EKG showed sinus tachycardia with anteroseptal GA, age indeterminate. His CXR showed no acute cardiopulmonary findings. His AXR showed nonspecific bowel gas pattern. The patient was given regular insulin and started on IV boluses and was admitted. He improvdd clinically and his H/h remained stable. He says he was on levemir 35 units at night and takes 25 units of humalog before each meal. His FBS this morning was 87 with 30 untis of levemir last night. We will discharge him on 30 units of SC of levemir at night and will do 15 units of humalog before each meal. He will follow up with me in 1 week with a BS diary and will adjust then. We will also continue with his Omeprazole 40 mg PO q A.M. and add Zantac 150 mg PO q HS for 2-4 weeks and he might need an EGD as outpatient. Procedures Performed: none Results and Findings: Lab Pending Results 03/30/18 21:45: Gastric Occult Blood Positive H 03/30/18 22:23: pCO2 38.7, pO2 86.1, HCO3 23.6, Total CO2 24.8 H, Base Excess - 0.9, ABG pH 7.40, ABG O2 Sat (Measured) 96.6 03/30/18 23:00: WBC 13.9 H, RBC 5.30, Hgb 15.4, Hct 48.6, MCV 91.7, MCH 29.1, MCHC 31.7 L, RDW 12.5, Plt Count 245, MPV 9.8, Immature Gran % (Auto) 0.40, Immature Gran # (Auto) 0.06 H, Neutrophils % 87.6 H, Lymphocytes % 8.3 L, Monocytes % 3.3, Eosinophils % 0.1, Basophils % 0.3, Nucleated RBC % 0.0, Neutrophils # 12.2 H, Lymphocytes # 1.15 L, Monocytes # 0.5, Eosinophils # 0.0, Absolute Basophils 0.0 03/30/18 23:00: Sodium 140, Plasma Sodium 145 H, Potassium 4.5, Chloride 99, Carbon Dioxide 27.3, Anion Gap 18.2 H, BUN 17, Creatinine 0.73, Est GFR (Non-Af Amer) 122 D, BUN/Creatinine Ratio 23.3 H, Random Glucose 405 H, Calcium 9.4, Calcium Adj for Albumin 9.5, Total Bilirubin 0.4, AST 24, ALT 24, Alkaline Phosphatase 172 H, Total Protein 6.9, Albumin 3.5, Ethyl Alcohol Less than 3.0, Serum Ketones Positive - 20mg/dl H 03/30/18 23:23: Urine Color Yellow, Urine Appearance Clear, Urine pH 7.0, Ur Specific [place] 1.010, Urine Protein Negative, Urine Glucose (UA) >=1000 H, Urine Ketones Large, Urine Blood Negative, Urine Nitrate Negative, Urine Bilirubin Negative, Urine Urobilinogen Normal, Ur Leukocyte Esterase Negative, Urine RBC None seen, Urine WBC None seen, Ur Epithelial Cells None seen, Urine Bacteria None seen, Urine Culture Comments No culture indicated 03/30/18 23:23: Urine Opiates Screen Negative, Barbiturate Screen Negative, Ur Phencyclidine Scrn Negative, Urine Amphetamine Positive H, U Benzodiazepines Scrn Negative, Urine Cocaine Screen Negative, Urine Marijuana (THC) Negative 03/31/18 03:30: pCO2 34.9 L, pO2 96.6, HCO3 19.9 L, Total CO2 21.0, Base Excess -4.5 L, ABG pH 7.37, ABG O2 Sat (Measured) 97.3 03/31/18 08:50: WBC 13.1 H, RBC 4.43 L, Hgb 12.9 L, Hct 39.8 L, MCV 89.8, MCH 29.1, MCHC 32.4, RDW 12.6, Plt Count 317, MPV 9.6, Immature Gran % (Auto) 0.50 H, Immature Gran # (Auto) 0.06 H, Neutrophils % 75.0, Lymphocytes % 16.0 L, Monocytes % 7.9, Eosinophils % 0.4, Basophils % 0.2, Nucleated RBC % 0.0, Neutrophils # 9.8 H, Lymphocytes # 2.09, Monocytes # 1.0, Eosinophils # 0.1, Absolute Basophils 0.0 03/31/18 08:50: Sodium 134, Plasma Sodium 139, Potassium 4.8 H, Chloride 100, Carbon Dioxide 21.1 L, Anion Gap 17.7 H, BUN 17, Creatinine 0.81, Est GFR (Non- Af Amer) 109, BUN/Creatinine Ratio 21.0, Random Glucose 420 H, Calcium 8.3, Calcium Adj for Albumin 8.9, Total Bilirubin 0.5, AST 19, ALT 17 L, Alkaline Phosphatase 152, Troponin I Less than 0.017, Total Protein 6.2, Albumin 2.9 L, Serum Ketones Positive - 20mg/dl H 03/31/18 08:50: Mean Blood Glucose 284, Hemoglobin A1c 11.1 H 03/31/18 17:20: Hgb 13.1 L, Hct 40.0 L 04/01/18 07:30: WBC 11.5 H, RBC 4.29 L, Hgb 12.6 L, Hct 38.2 L, MCV 89.0, MCH 29.4, MCHC 33.0, RDW 12.6, Plt Count 318, MPV 9.2, Immature Gran % (Auto) 0.40, Immature Gran # (Auto) 0.05 H, Neutrophils % 64.1, Lymphocytes % 24.7, Monocytes % 8.2, Eosinophils % 2.3, Basophils % 0.3, Nucleated RBC % 0.0, Neutrophils # 7.4 H, Lymphocytes # 2.85, Monocytes # 1.0, Eosinophils # 0.3, Absolute Basophils 0.0 04/01/18 07:30: Sodium 138, Plasma Sodium 138, Potassium 3.9, Chloride 105, Carbon Dioxide 28.4, Anion Gap 8.5, BUN 15, Creatinine 0.69, Est GFR (Non-Af Amer) 131 H D, BUN/Creatinine Ratio 21.7 H, Random Glucose 86 D, Calcium 8.2 Discharge Location: Home Disposition: Home self-care Condition: Stable Discharge Activity: Activity as tolerated Discharge Diet: Consistent carbs, Other - bland diet Referrals: Horace Feng MD [Primary Care Provider] - Additional Patient Instructions (free text): Follow up with PCP in 1 week with BS diary. Prescriptions (Any new or edited meds): Acetaminophen [Tylenol] 650 mg PO Q6H PRN #30 tablet PRN Reason: Mild Pain (Pain Scale 1-3) Insulin Detemir [Levemir] 30 units SC HS #1 vial Insulin Lispro [Humalog] 15 unit SUB-Q AC #13 ml Ranitidine HCl [Zantac] 150 mg PO ACHS #30 tablet Complete Home Medications List: Complete Home Medication List: Gabapentin [Gralise] 600 mg PO HS 07/08/16 Lisinopril 20 mg PO DAILY 12/16/16 Promethazine HCl [Phenergan (Promethazine)] 25 mg PO Q6H PRN #60 tab 04/03/17 omeprazole 40 mg capsule,delayed release 40 mg PO DAILY #90 cap 01/10/18 Blood-Glucose Meter,Continuous [Dexcom G4] 0 ea .ROUTE .MEDSUPPLY 03/31/18 insulin syringe with safety needle 0.5 mL 30 gauge x 5/16" 0 ea .ROUTE .MEDSUPPLY 03/31/18 Acetaminophen [Tylenol] 650 mg PO Q6H PRN #30 tablet 04/01/18 Insulin Detemir [Levemir] 30 units SC HS #1 vial 04/01/18 Insulin Lispro [Humalog] 15 unit SUB-Q AC #13 ml 04/01/18 Ranitidine HCl [Zantac] 150 mg PO ACHS #30 tablet 04/01/18
[2018-04-01] MEDS: LISINOPRIL 20 MG TABLET PO SCH (08:55)
[2018-04-01 11:32] VITALS: BP 109/72
== END 2018-04-01 10:45 | disposition home or self-care (01) ==
LOC: ER 21:35 → MS 03-31 01:01 → INTOOBSV 03-31 01:01 → MS 03-31 01:30
PROVIDERS: ADMIT Family Medicine; ATTEND Internal Medicine
CPT/HCPCS: 36415; 36600; 71010; 71045; 74019; 74020; 80048; 80053; 80307; 80320; 81001; 82009; 82272; 82803; 83036; 84484; 85014; 85018; 85025; 87081; 93005; 94762; 96361; 96365; 96366; 96372; 96375; 99285; G0378; G0481; J2405

== ENCOUNTER 2018-06-22 17:57 | Inpatient (IN) ==
[2018-06-22] MEDS ORDERED: ONDANSETRON HCL/PF 2 MG/ML VIAL IV ONE (18:11)
[2018-06-22] MEDS ORDERED: NORMAL SALINE 1,000 ML IV ONE ×2 (18:12→19:23)
[2018-06-22] MEDS ORDERED: ONDANSETRON HCL/PF 2 MG/ML VIAL ONE (18:13)
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
[2018-06-22 18:32] LABS: Urine Bilirubin Negative (NEGATIVE); Urine Blood Negative /ul (NEGATIVE); Urine Ketone Large mg/dL (NEGATIVE); Urine Nitrite Negative (NEGATIVE); Urine Protein Negative (NEGATIVE); Urine Specific Gravity >=1.030 SP.GR. (1.005-1.030); Urine Urobilinogen Normal (NORMAL); Urine pH 5.5 pH (5.0-7.0)
[2018-06-22 18:46] LABS: Urine Appearance Clear (CLEAR); Urine Bacteria None Seen; Urine Color Yellow; Urine Hyaline Cast 0-5 /LPF; Urine RBC None Seen /hpf (0-5); Urine WBC None Seen /hpf (0-5)
[2018-06-22 18:51] LABS: Cocaine Ur Negative (NEGATIVE); Urine Barbiturate Negative (NEGATIVE); Urine Benzodiazepines Negative (NEGATIVE); Urine Opiates Negative (NEGATIVE); Urine PCP Negative (NEGATIVE); Urine THC Negative (NEGATIVE)
[2018-06-22 19:47] LABS: Hematocrit 47.3 % (42.0-52.0); Hemoglobin 15.5 gm/dL (13.5-18.0); Mean Cell Volume 90.6 fl (78-100); Mean Corpuscular Hemoglobin 29.7 pg (27-31); Mean Corpuscular Hgb Conc 32.8 g/dl (32-36); Mean Platelet Volume 10.3 fl (8-11.3); Red Blood Count 5.22 M/mm3 (4.7-6.0)
[2018-06-22 19:53] LABS: Total Cells Counted 100
[2018-06-22 20:01] LABS: ALT 44 U/L (19-67); AST 43 U/L (0-48); Albumin * 3.4 gm/dl (3.4-5.0); Alkaline Phosphatase * 194 U/L (50-170); Anion Gap 32.9 mmol/L (6.8-13.8); BUN/Creatinine Ratio 20.2 (9.0-21.6); Bilirubin, Total 0.4 mg/dL (0.0-1.1); Blood Urea Nitrogen 22 mg/dL (6-23); Ca. Corrected For Albumin 9.1 mg/dL (8.4-10.2); Calcium * 8.9 mg/dL (7.9-10.9); Carbon Dioxide 8.5 mmol/L (24-32.6); Chloride 98 mmol/L (97-106); Glucose * 479 mg/dL (70-110); Potassium 5.4 mmol/L (3.4-4.6); Sodium 134 mmol/L (132-142); Total Protein 6.9 gm/dL (6.2-8.2)
[2018-06-22 20:04] LABS: Troponin I Less than 0.017 ng/mL (0.00-0.10)
[2018-06-22 20:12] LABS: Band 2 % (0-2.0); Basophil 1 % (0-1); Lymphocyte 13 % (20-51); Monocyte 6 % (0-9); Neutrophil 78 % (42-75); Neutrophil # 10.9 K/mm3 (1.3-6.0)
[2018-06-22 20:19] LABS: Platelet Estimate Increased (NORMAL)
[2018-06-22 20:20] LABS: Polychromasia 1+
[2018-06-22 20:27] LABS: Platelet Count 309 K/mm3 (150-450)
[2018-06-22] MEDS ORDERED: PROCHLORPERAZINE EDISYLATE 5 MG/ML VIAL IV ONE (20:47)
[2018-06-22] MEDS ORDERED: INSULIN REGULAR, HUMAN 100 UNITS in NORMAL SALINE 100 ML IV PRN ×4 (20:51→22:15)
[2018-06-22] MEDS ORDERED: INSULIN REGULAR, HUMAN 100 UNITS/ML VIAL IV ONE (20:51)
[2018-06-22] MEDS ORDERED: NORMAL SALINE 1,000 ML IV PRN (22:07)
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
[2018-06-22 23:12] LABS: BUN/Creatinine Ratio 21.1 (9.0-21.6); Calcium * 8.9 mg/dL (7.9-10.9); Carbon Dioxide 10.4 mmol/L (24-32.6); Potassium 4.4 mmol/L (3.4-4.6)
[2018-06-22 23:13] LABS: Venous Blood Gas pH 7.16 (7.32-7.43)
[2018-06-23 00:11] LABS: Venous Blood Gas HCO3 10.2 mmol/L (22.0-29.0); Venous Blood Gas pH 7.21 (7.32-7.43)
[2018-06-23 00:21] LABS: Anion Gap 29.5 mmol/L (6.8-13.8); BUN/Creatinine Ratio 19.8 (9.0-21.6); Calcium * 8.8 mg/dL (7.9-10.9); Estimated Creat Clear 85.5; Potassium 4.5 mmol/L (3.4-4.6)
[2018-06-23 01:38] LABS: Venous Blood Gas HCO3 12.7 mmol/L (22.0-29.0); Venous Blood Gas pH 7.26 (7.32-7.43)
[2018-06-23 01:49] LABS: Anion Gap 23.9 mmol/L (6.8-13.8); BUN/Creatinine Ratio 19.1 (9.0-21.6); Calcium * 8.4 mg/dL (7.9-10.9); Carbon Dioxide 14.2 mmol/L (24-32.6); Estimated Creat Clear 90.1; Potassium 4.1 mmol/L (3.4-4.6)
[2018-06-23] MEDS: DEXTROSE 5%-0.5 NORMAL SALINE 1,000 ML IV PRN ×2 (02:04→07:31)
[2018-06-23 02:42] LABS: Venous Blood Gas HCO3 14.9 mmol/L (22.0-29.0); Venous Blood Gas pH 7.31 (7.32-7.43)
[2018-06-23 02:53] LABS: Anion Gap 21.8 mmol/L (6.8-13.8); BUN/Creatinine Ratio 19.2 (9.0-21.6); Calcium * 8.1 mg/dL (7.9-10.9); Carbon Dioxide 15.3 mmol/L (24-32.6); Estimated Creat Clear 95.3; Potassium 4.1 mmol/L (3.4-4.6)
[2018-06-23 04:00] LABS: Venous Blood Gas HCO3 14.7 mmol/L (22.0-29.0); Venous Blood Gas pH 7.38 (7.32-7.43)
[2018-06-23 04:09] LABS: Anion Gap 19.9 mmol/L (6.8-13.8); BUN/Creatinine Ratio 17.5 (9.0-21.6); Calcium * 7.9 mg/dL (7.9-10.9); Carbon Dioxide 16.2 mmol/L (24-32.6); Estimated Creat Clear 96.3; Potassium 4.1 mmol/L (3.4-4.6)
[2018-06-23 05:00] LABS: Venous Blood Gas HCO3 15.3 mmol/L (22.0-29.0); Venous Blood Gas pH 7.45 (7.32-7.43)
[2018-06-23 05:10] LABS: Anion Gap 19.1 mmol/L (6.8-13.8); BUN/Creatinine Ratio 16.5 (9.0-21.6); Calcium * 7.9 mg/dL (7.9-10.9); Carbon Dioxide 15.9 mmol/L (24-32.6)
[2018-06-23 06:29] VITALS: BP 119/63
[2018-06-23 07:45] LABS: Venous Blood Gas HCO3 18.1 mmol/L (22.0-29.0); Venous Blood Gas pH 7.38 (7.32-7.43)
[2018-06-23 07:54] LABS: Anion Gap 16.7 mmol/L (6.8-13.8); BUN/Creatinine Ratio 16.5 (9.0-21.6); Calcium * 7.6 mg/dL (7.9-10.9); Estimated Creat Clear 96.3; Potassium 3.7 mmol/L (3.4-4.6)
[2018-06-23] MEDS ORDERED: POTASSIUM CHLORIDE 20 MEQ in DEXTROSE 5%-0.5 NORMAL SALINE 990 ML IV SCH (08:00)
--- NOTE | 2018-06-23 08:15 | PN ---
Progess Note - Interim Date: 06/23/18 Time: 08:12 Narrative: 06/23/18 08:12 patient is AAO x3 but not very cooperative with answering my queries. He ate just bits of his breakfast and drank his juice and milk as per nurse. He denied N/V with it. Will do his next BMP before lunch and start his pre-meal humalog and d/c his drip 1/2 hour after . Possible discharge today.
--- NOTE | 2018-06-23 11:36 | DS ---
Description of Stay: Melvin Burgess is a 48-year-old type I diabetic presented to the ER following 2 days of abdominal pain with nausea and vomiting and was admitted on 06/22/2018 by doctor aeronautical design engineer, Dr. Sandhu. He had not been compliant with his diabetic treatment. The patient was agitated and unwilling to answer most questions of the docotor aeronautical design engineer as well to my queries this morning. He does state that he is feeling better after being seen in the ER and given some insulin. His lab work showed him to have a white blood cell count of 14 with a mild left shift at 78%. His VBG showed him to be acidotic at 7.249. His chemistry panel showed him to have an elevated potassium of 5.4 but a normal sodium, his glucose was 479. Cardiac enzymes were negative. Urine showed glucose to be greater than 1000. Toxicology was positive for amphetamines and serum ketones. He was admitted to the unit for DKA and started on insulin drip. He improved clinically but was agitated with his blood draws. I told him we will start him on Humalog before his lunch today and discontinue his insulin drip and plan for discharge this afternoon. He later told the nurse that he did not want to stay anymore and will leave AMA. He was told of the dangers of leaving without completing his treatment , including . He was adamant to go home and signed the A papers. Procedures Performed: none Results and Findings: Lab Pending Results 06/22/18 18:07: Gastric Occult Blood Positive H 06/22/18 18:21: Urine Color Yellow, Urine Appearance Clear, Urine pH 5.5, Ur Specific Elmer >=1.030, Urine Protein Negative, Urine Glucose (UA) >=1000 H, Urine Ketones Large, Urine Blood Negative, Urine Nitrate Negative, Urine Bilirubin Negative, Urine Urobilinogen Normal, Ur Leukocyte Esterase Negative, Urine RBC None seen, Urine WBC None seen, Ur Epithelial Cells 0-5, Urine Bacteria None seen, Hyaline Casts 0-5 H, Urine Culture Comments No culture indicated 06/22/18 18:21: Urine Opiates Screen Negative, Barbiturate Screen Negative, Ur Phencyclidine Scrn Negative, Urine Amphetamine Positive H, U Benzodiazepines Scrn Negative, Urine Cocaine Screen Negative, Urine Marijuana (THC) Negative 06/22/18 19:30: WBC 14.0 H, RBC 5.22, Hgb 15.5, Hct 47.3, MCV 90.6, MCH 29.7, MCHC 32.8, RDW 12.0, Plt Count 309, MPV 10.3, Neutrophils % (Manual) 78 H, Band Neuts % (Manual) 2, Lymphocytes % (Manual) 13 L, Monocytes % (Manual) 6, Basophils % (Manual) 1, Neutrophils # (Manual) 10.9 H, Lymphocytes # (Manual) 1.8, Monocytes # (Manual) 0.8, Basophils # (Manual) 0.1, Platelet Estimate Increased H, Polychromasia 1+, Golden Cells 1+ 06/22/18 19:30: VBG pH 7.249 L 06/22/18 19:30: Sodium 134, Plasma Sodium 140, Potassium 5.4 H D, Chloride 98, Carbon Dioxide 8.5 L, Anion Gap 32.9 H, BUN 22, Creatinine 1.09, Est GFR (Non-Af Amer) 77 D, BUN/Creatinine Ratio 20.2, Random Glucose 479 H, Calcium 8.9, Calcium Adj for Albumin 9.1, Total Bilirubin 0.4, AST 43, ALT 44, Alkaline Phosphatase 194 H, Troponin I Less than 0.017, Total Protein 6.9, Albumin 3.4, Serum Ketones Positive - 40mg/dl H 06/22/18 23:00: pCO2 25.6 L, pO2 66.8 H, HCO3 9.0 L, Total CO2 9.8 L, Base Excess -17.9 L, ABG pH 7.16 L*, VBG O2 Saturation 88.2 L 06/22/18 23:00: Sodium 139, Plasma Sodium 142, Potassium 4.4, Chloride 105, Carbon Dioxide 10.4 L, Anion Gap 28.0 H, BUN 23, Creatinine 1.09, Est GFR (Non- Af Amer) 77, BUN/Creatinine Ratio 21.1, Random Glucose 283 H D, Calcium 8.9 06/23/18 00:05: pCO2 26.3 L, pO2 55.3 H, HCO3 10.2 L, Total CO2 11.0 L, Base Excess -15.8 L, ABG pH 7.21 L, VBG O2 Saturation 82.9 L 06/23/18 00:05: Sodium 141, Plasma Sodium 143 H, Potassium 4.5, Chloride 106, Carbon Dioxide 10.0 L, Anion Gap 29.5 H, BUN 23, Creatinine 1.16, Est GFR (Non- Af Amer) 71, BUN/Creatinine Ratio 19.8, Random Glucose 229 H, Calcium 8.8 06/23/18 01:30: pCO2 29.2 L, pO2 45.6 H, HCO3 12.7 L, Total CO2 13.6 L, Base Excess -12.9 L, ABG pH 7.26 L, VBG O2 Saturation 75.6 L 06/23/18 01:30: Sodium 141, Plasma Sodium 142, Potassium 4.1, Chloride 107 H, Carbon Dioxide 14.2 L, Anion Gap 23.9 H, BUN 21, Creatinine 1.10, Est GFR (Non- Af Amer) 76, BUN/Creatinine Ratio 19.1, Random Glucose 133 H D, Calcium 8.4 06/23/18 02:35: pCO2 30.3 L, pO2 60.5 H, HCO3 14.9 L, Total CO2 15.8 L, Base Excess -9.9 L, ABG pH 7.31 L, VBG O2 Saturation 89.4 L 06/23/18 02:35: Sodium 140, Plasma Sodium 140, Potassium 4.1, Chloride 107 H, Carbon Dioxide 15.3 L, Anion Gap 21.8 H, BUN 20, Creatinine 1.04, Est GFR (Non- Af Amer) 81, BUN/Creatinine Ratio 19.2, Random Glucose 106, Calcium 8.1 06/23/18 03:55: Sodium 138, Plasma Sodium 138, Potassium 4.1, Chloride 106, Carbon Dioxide 16.2 L, Anion Gap 19.9 H, BUN 18, Creatinine 1.03, Est GFR (Non- Af Amer) 82, BUN/Creatinine Ratio 17.5, Random Glucose 108, Calcium 7.9 06/23/18 03:55: pCO2 25.3 L, pO2 69.1 H, HCO3 14.7 L, Total CO2 15.5 L, Base Excess -8.4 L, ABG pH 7.38, VBG O2 Saturation 94.0 06/23/18 04:55: pCO2 22.8 L, pO2 77.3 H, HCO3 15.3 L, Total CO2 16.0 L, Base Excess -6.6 L, ABG pH 7.45 H, VBG O2 Saturation 96.2 06/23/18 04:55: Sodium 137, Plasma Sodium 137, Potassium 4.0, Chloride 106, Carbon Dioxide 15.9 L, Anion Gap 19.1 H, BUN 18, Creatinine 1.09, Est GFR (Non- Af Amer) 77, BUN/Creatinine Ratio 16.5, Random Glucose 108, Calcium 7.9 06/23/18 07:40: pCO2 31.6 L, pO2 61.8 H, HCO3 18.1 L, Total CO2 19.1 L, Base Excess -5.8 L, ABG pH 7.38, VBG O2 Saturation 91.6 L 06/23/18 07:40: Sodium 137, Plasma Sodium 137, Potassium 3.7, Chloride 105, Carbon Dioxide 19.0 L, Anion Gap 16.7 H, BUN 17, Creatinine 1.03, Est GFR (Non- Af Amer) 82, BUN/Creatinine Ratio 16.5, Random Glucose 92, Calcium 7.6 L Discharge Location: Home Disposition: Against medical advice Condition: Undetermined Discharge Activity: Activity as tolerated Discharge Diet: Consistent carbs Referrals: Horace Feng MD [Primary Care Provider] - Additional Patient Instructions (free text): Follow-up with Dr. Feng on 06/27/18 at 10AM. Complete Home Medications List: Complete Home Medication List: RX: Gabapentin [Gralise] 600 mg PO HS 07/08/16 RX: Promethazine HCl [Phenergan (Promethazine)] 25 mg PO Q6H PRN #60 tab 04/03/17 omeprazole 40 mg capsule,delayed release 40 mg PO DAILY #90 cap 01/10/18 RX: Blood-Glucose Meter,Continuous [Dexcom G4] 0 ea .ROUTE .MEDSUPPLY 03/31/18 RX: insulin syringe with safety needle 0.5 mL 30 gauge x 5/16" 0 ea .ROUTE .MEDSUPPLY 03/31/18 RX: Acetaminophen [Tylenol] 650 mg PO Q6H PRN #30 tab 04/01/18 RX: Insulin Detemir [Levemir] 30 units SC HS #1 vial 04/01/18 Ranitidine HCl [Zantac] 150 mg PO ACHS #30 tab 04/01/18 insulin lispro (U- 100) 100 unit/mL subcutaneous solution 10 unit SUBCUT AC #13 ml 04/08/18 lisinopril 20 mg tablet 20 mg PO DAILY #90 tab 06/06/18
== END 2018-06-23 09:00 | disposition left against medical advice (07) | DRG 639 ==
LOC: ER 17:57 → SCU 21:01
PROVIDERS: ADMIT Family Medicine; ATTEND Internal Medicine
CPT/HCPCS: 36415; 36416; 80048; 80053; 80307; 81001; 82009; 82272; 82800; 82803; 84484; 85025; 96361; 96374; 96375; 99285; J2405